=== PATIENT | female | born 1955 | race Caucasian/White ===

== ENCOUNTER → 2017-03-03 | Outpatient (CLI) | payer MEDICAID | END | disposition home or self-care (01) | LOC: CFH 12:46 | PROVIDERS: ATTEND Internal Medicine Cardiovascular Disease | DX: I08.1 Rheumatic disorders of both mitral and tricuspid valves (principal); I48.2 Chronic atrial fibrillation; E11.9 Type 2 diabetes mellitus without complications; Z85.3 Personal history of malignant neoplasm of breast; Z86.73 Personal history of transient ischemic attack (TIA), and cerebral infarction without residual deficits; Z87.891 Personal history of nicotine dependence; Z79.82 Long term (current) use of aspirin | CPT/HCPCS: 93306 ==

== ENCOUNTER 2018-03-04 13:07 | Inpatient (IN) | payer MEDICAID ==
[~2018-03-04] VITALS: Ht 172.7 cm; Wt 96.3 kg
[2018-03-04] MEDS ORDERED: NITROGLYCERIN SINGLE TAB 0.4 MG SL PRN (13:30)
[2018-03-04] MEDS ORDERED: NITROGLYCERIN SINGLE TAB 0.4 MG SL ONE (13:42)
[2018-03-04 13:56] LABS: BASOPHILS # (AUTO) 0.16 x10^3/uL (0-0.1); BASOPHILS % (AUTO) 2 % (0-1); EOSINOPHILS # (AUTO) 0.24 x10^3/uL (0-0.4); EOSINOPHILS % (AUTO) 2 % (1-7); LYMPHOCYTES # (AUTO) 2.54 x10^3/uL (1-3.4); LYMPHOCYTES % (AUTO) 26 % (22-44); MD NO; MEAN CORPUSCULAR HEMOGLOBIN 27.3 pg (27.0-34.8); MEAN CORPUSCULAR HGB CONC 32.7 g/dL (32.4-35.8); MEAN CORPUSCULAR VOLUME 83.4 fL (80-100); MONOCYTES # (AUTO) 0.57 x10^3/uL (0.2-0.8); MONOCYTES % (AUTO) 6 % (2-9); NEUTROPHILS # (AUTO) 6.43 x10^3/uL (1.8-6.8); NEUTROPHILS % (AUTO) 65 % (42-75); PLATELET COUNT 272 x10^3/uL (130-400); RED BLOOD COUNT 5.37 x10^6/uL (3.82-5.3); RED CELL DISTRIBUTION WIDTH 15.5 % (9.6-15.2)
[2018-03-04] MEDS ORDERED: PLEASE ENTER HEIGHT AND WEIGHT MC SCH (14:00)
[2018-03-04 14:02] LABS: ALANINE AMINOTRANSFERASE 15 U/L (12-78); ALBUMIN 3.3 g/dL (3.4-5.0); ANION GAP 7 mmol/L (5-15); CALCIUM 9.4 mg/dL (8.5-10.1); CHLORIDE 105 mmol/L (98-107); INTERNATIONAL NORMALIZED RATIO 1.02 (0.93-1.1); PROTHROMBIN TIME 10.5 Seconds (9.6-11.5)
[2018-03-04] MEDS ORDERED: OLOD4MIS2 PO (14:05)
[2018-03-04] MEDS ORDERED: SUMA25TA4 PO (14:05)
[2018-03-04 14:06] LABS: ALKALINE PHOSPHATASE 95 U/L (45-117); BILIRUBIN,TOTAL 0.3 mg/dL (0.2-1.0); TOTAL PROTEIN 7.2 g/dL (6.4-8.2); TROPONIN I 0.016 ng/mL (0.000-0.045)
[2018-03-04 15:24] LABS: CULTURE INDICATED? YES; MICROSCOPIC INDICATED
[2018-03-04] MEDS ORDERED: ALPR0.5T5 PO (16:01)
[2018-03-04] MEDS ORDERED: SUMA50TA4 PO (16:01)
[2018-03-04] MEDS ORDERED: TIOT4MIS3 INH (16:02)
[2018-03-04] MEDS ORDERED: ESOM40CA PO (16:03)
[2018-03-04] MEDS ORDERED: CANA300T PO (16:03)
[2018-03-04] MEDS ORDERED: GLIP10TA13 PO (16:04)
[2018-03-04] MEDS ORDERED: LORA10TA62 PO (16:05)
[2018-03-04] MEDS ORDERED: SITA1TBM7 PO (16:06)
[2018-03-04] MEDS ORDERED: LEVO25TA2 PO (16:06)
[2018-03-04] MEDS ORDERED: SIMV40TA3 PO (16:08)
[2018-03-04] MEDS ORDERED: ARIP20TA5 PO (16:08)
[2018-03-04] MEDS ORDERED: TRAZ150T62 PO (16:09)
[2018-03-04] MEDS ORDERED: ASPI-496 PO (16:10)
[2018-03-04] MEDS ORDERED: ALBU1.25 NEB (16:10)
[2018-03-04] MEDS ORDERED: CITA20TA6 PO (16:11)
[2018-03-04] MEDS ORDERED: CEFTRIAXONE PMX 1GM/50ML 50 ML ONE (16:26)
[2018-03-04] MEDS ORDERED: DIGO250T12 PO (16:29)
[2018-03-04] MEDS ORDERED: DEXTROSE 4 GM TAB.CHEW PO PRN (16:30)
[2018-03-04] MEDS ORDERED: POLYETHYLENE GLYCOL 17 GM PACKET PO PRN (16:30)
[2018-03-04] MEDS ORDERED: GLUCAGON 1 MG IM PRN (16:30)
[2018-03-04] MEDS ORDERED: ENALAPRILAT 1.25 MG/ML, 2ML IVPush PRN (16:30)
[2018-03-04] MEDS ORDERED: DEXTROSE 50%, 50ML SYRINGE IVPush PRN (16:30)
[2018-03-04] MEDS ORDERED: LABETALOL 5MG/ML, 20ML IVPush PRN (16:30)
[2018-03-04] MEDS ORDERED: BISACODYL 10 MG SUPP PR PRN (16:30)
[2018-03-04] MEDS ORDERED: DOCUSATE 100 MG CAPSULE PO PRN (16:30)
[2018-03-04] MEDS ORDERED: CEFTRIAXONE 1,000 MG in SODIUM CHLORIDE 0.9% 50 ML IV SCH (16:30)
[2018-03-04] MEDS ORDERED: MORPHINE SULFATE 4 MG/ML, 1ML IVPush PRN (16:30)
[2018-03-04] MEDS ORDERED: hydrALAzine 20 MG/ML, 1ML IVPush PRN (16:30)
[2018-03-04] MEDS: CEFTRIAXONE PMX 1GM/50ML 50 ML IV SCH (16:40)
[2018-03-04 16:46] VITALS: BP 128/78
[2018-03-04 16:54] LABS: TROPONIN I 0.022 ng/mL (0.000-0.045)
[2018-03-04] MEDS ORDERED: FUROSEMIDE 20 MG/2 ML IV ONE (17:00)
[2018-03-04 17:18] LABS: HEMOGLOBIN A1C 6.4 % (4.2-6.3)
[2018-03-04 17:50] LABS: AMPHETAMINE SCREEN, URINE Negative (Negative); BARBITURATE SCREEN, URINE Negative (Negative); BENZODIAZEPINE SCREEN, URINE Negative (Negative); CANNABINOID SCREEN, URINE Negative (Negative); COCAINE SCREEN, URINE Negative (Negative); METHADONE SCREEN, URINE Negative (Negative); OPIATE SCREEN, URINE Negative (Negative)
[2018-03-04 20:07] VITALS: BP 111/69
[2018-03-04] MEDS ORDERED: ALBUTEROL SULFATE 2.5 MG/3 ML NPPB PRN (20:30)
[2018-03-04] MEDS ORDERED: ALPRAZOLAM 0.5 MG PO SCH (21:00)
[2018-03-04] MEDS: INSULIN LISPRO 100 UNITS/ML, PEN SQ-INSULIN SCH (21:00)
[2018-03-04] MEDS ORDERED: OLODATEROL HCL PO SCH (21:00)
[2018-03-04] MEDS: SIMVASTATIN 40 MG TABLET PO SCH (21:51)
[2018-03-04] MEDS: HEPARIN 5,000 UNITS/ML, 1ML SQ SCH (21:51)
[2018-03-04] MEDS: SODIUM CHLORIDE FLUSH 10ML SYR IVF SCH (21:55)
[2018-03-04 22:49] LABS: TROPONIN I 0.024 ng/mL (0.000-0.045)
[2018-03-05 00:23] VITALS: BP 118/63
[2018-03-05 05:06] LABS: BASOPHILS # (AUTO) 0.04 x10^3/uL (0-0.1); BASOPHILS % (AUTO) 0 % (0-1); EOSINOPHILS # (AUTO) 0.25 x10^3/uL (0-0.4); EOSINOPHILS % (AUTO) 2 % (1-7); LYMPHOCYTES # (AUTO) 1.97 x10^3/uL (1-3.4); LYMPHOCYTES % (AUTO) 17 % (22-44); MD NO; MEAN CORPUSCULAR HEMOGLOBIN 26.5 pg (27.0-34.8); MEAN CORPUSCULAR HGB CONC 32.3 g/dL (32.4-35.8); MEAN CORPUSCULAR VOLUME 82.3 fL (80-100); MEAN PLATELET VOLUME 7.8 fL (7.4-10.4); MONOCYTES # (AUTO) 0.71 x10^3/uL (0.2-0.8); MONOCYTES % (AUTO) 6 % (2-9); NEUTROPHILS % (AUTO) 75 % (42-75); PLATELET COUNT 268 x10^3/uL (130-400); RED BLOOD COUNT 5.44 x10^6/uL (3.82-5.3); RED CELL DISTRIBUTION WIDTH 15.8 % (9.6-15.2)
[2018-03-05 05:18] LABS: ALBUMIN 3.3 g/dL (3.4-5.0); ANION GAP 7 mmol/L (5-15); CALCIUM 9.7 mg/dL (8.5-10.1); CHLORIDE 104 mmol/L (98-107)
[2018-03-05] MEDS: HEPARIN 5,000 UNITS/ML, 1ML SQ SCH (05:20)
[2018-03-05 05:24] LABS: ALANINE AMINOTRANSFERASE 16 U/L (12-78); ALKALINE PHOSPHATASE 89 U/L (45-117); BILIRUBIN,TOTAL 0.3 mg/dL (0.2-1.0); CHOL/HDL RATIO 6.8; CHOLESTEROL, TOTAL 258 mg/dL (140-239); CREATININE 0.87 mg/dL (0.55-1.02); HDL CHOL % 15 % (28-40); HDL CHOLESTEROL (DIRECT) 38 mg/dL (40-60); LDL CHOLESTEROL,CALCULATED 148 mg/dL (54-169); LDL/HDL RATIO 3.9 (0.5-3.0); TOTAL PROTEIN 6.9 g/dL (6.4-8.2); TRIGLYCERIDES 362 mg/dL (50-200); VLDL CHOLESTEROL 72 mg/dL (0-25)
[2018-03-05] MEDS ORDERED: LEVOTHYROXINE 150 MCG TABLET PO SCH (06:00)
[2018-03-05 07:10] LABS: TROPONIN I < 0.015 ng/mL (0.000-0.045)
[2018-03-05 07:28] VITALS: BP 117/71
[2018-03-05] MEDS: INSULIN LISPRO 100 UNITS/ML, PEN SQ-INSULIN SCH ×4 (07:52→21:00)
[2018-03-05] MEDS ORDERED: ESOMEPRAZOLE MAGNESIUM 40 MG PO SCH (09:00)
[2018-03-05] MEDS ORDERED: FUROSEMIDE 20 MG/2 ML IV SCH ×2 (09:00→17:30)
[2018-03-05] MEDS: ARIPIPRAZOLE 10 MG TABLET PO SCH (09:30)
[2018-03-05] MEDS: OMEPRAZOLE 20 MG CAPSULE.DR PO SCH (09:30)
[2018-03-05] MEDS: LORATADINE 10 MG TABLET PO SCH (09:30)
[2018-03-05] MEDS: ASPIRIN 81 MG TABLET EC PO SCH (09:30)
[2018-03-05] MEDS: TRAZODONE 150MG TABLET PO SCH (09:32)
[2018-03-05] MEDS: CITALOPRAM 20 MG TABLET PO SCH (09:32)
[2018-03-05] MEDS: SODIUM CHLORIDE FLUSH 10ML SYR IVF SCH ×2 (09:34→20:32)
[2018-03-05 12:36] VITALS: BP 111/76
[2018-03-05] MEDS: ENOXAPARIN 100 MG/ML SQ SCH (14:22)
[2018-03-05] MEDS: CEFTRIAXONE PMX 1GM/50ML 50 ML IV SCH (16:48)
[2018-03-05 18:10] VITALS: BP 127/67
[2018-03-05] MEDS: DIGOXIN 0.125 MG TABLET PO SCH (18:39)
[2018-03-05 19:32] VITALS: BP 116/75
[2018-03-05] MEDS: ACETAMINOPHEN 325 MG TABLET PO PRN (20:31)
[2018-03-05] MEDS: SIMVASTATIN 40 MG TABLET PO SCH (20:31)
[2018-03-06 00:58] VITALS: BP 126/76
[2018-03-06] MEDS: ENOXAPARIN 100 MG/ML SQ SCH ×2 (02:15→14:45)
[2018-03-06 05:16] LABS: BASOPHILS # (AUTO) 0.05 x10^3/uL (0-0.1); BASOPHILS % (AUTO) 1 % (0-1); EOSINOPHILS # (AUTO) 0.27 x10^3/uL (0-0.4); EOSINOPHILS % (AUTO) 3 % (1-7); LYMPHOCYTES # (AUTO) 2.45 x10^3/uL (1-3.4); LYMPHOCYTES % (AUTO) 24 % (22-44); MD NO; MEAN CORPUSCULAR HEMOGLOBIN 27.3 pg (27.0-34.8); MEAN CORPUSCULAR HGB CONC 32.6 g/dL (32.4-35.8); MEAN CORPUSCULAR VOLUME 83.6 fL (80-100); MEAN PLATELET VOLUME 8.1 fL (7.4-10.4); MONOCYTES # (AUTO) 0.75 x10^3/uL (0.2-0.8); MONOCYTES % (AUTO) 7 % (2-9); NEUTROPHILS # (AUTO) 6.54 x10^3/uL (1.8-6.8); NEUTROPHILS % (AUTO) 65 % (42-75); PLATELET COUNT 248 x10^3/uL (130-400); RED BLOOD COUNT 5.38 x10^6/uL (3.82-5.3); RED CELL DISTRIBUTION WIDTH 15.4 % (9.6-15.2)
[2018-03-06 05:28] LABS: ALBUMIN 3.2 g/dL (3.4-5.0); ANION GAP 9 mmol/L (5-15); CALCIUM 9.6 mg/dL (8.5-10.1); CHLORIDE 102 mmol/L (98-107)
[2018-03-06 05:29] LABS: CREATININE 0.68 mg/dL (0.55-1.02)
[2018-03-06] MEDS: LEVOTHYROXINE 100 MCG TABLET PO SCH (05:32)
[2018-03-06] MEDS: INSULIN LISPRO 100 UNITS/ML, PEN SQ-INSULIN SCH ×4 (07:00→20:32)
[2018-03-06 07:18] VITALS: BP 114/71
[2018-03-06] MEDS: OMEPRAZOLE 20 MG CAPSULE.DR PO SCH (07:30)
[2018-03-06] MEDS: LORATADINE 10 MG TABLET PO SCH (08:33)
[2018-03-06] MEDS: DIGOXIN 0.125 MG TABLET PO SCH (08:33)
[2018-03-06] MEDS: ASPIRIN 81 MG TABLET EC PO SCH (08:33)
[2018-03-06] MEDS: ARIPIPRAZOLE 10 MG TABLET PO SCH (08:33)
[2018-03-06] MEDS: SODIUM CHLORIDE FLUSH 10ML SYR IVF SCH ×2 (08:34→20:37)
[2018-03-06] MEDS: CITALOPRAM 20 MG TABLET PO SCH (08:34)
[2018-03-06] MEDS ORDERED: REGADENOSON 0.4 MG/5 ML SYRINGE ONE (08:45)
[2018-03-06] MEDS ORDERED: DIGOXIN 0.125 MG TABLET PO SCH (09:00)
[2018-03-06 13:02] VITALS: BP 117/71
[2018-03-06 16:05] LABS: OCCULT BLOOD NEGATIVE (NEGATIVE)
[2018-03-06] MEDS: CEFTRIAXONE PMX 1GM/50ML 50 ML IV SCH (16:20)
[2018-03-06] MEDS: ACETAMINOPHEN 325 MG TABLET PO PRN ×2 (16:24→20:40)
[2018-03-06] MEDS ORDERED: METOPROLOL 1 MG/ML, 5ML IVPush PRN (18:00)
[2018-03-06] MEDS ORDERED: DIGOXIN 0.125 MG TABLET PO ONE (18:30)
[2018-03-06 19:30] VITALS: BP 127/75
[2018-03-06] MEDS ORDERED: TRAZODONE 100MG TABLET ONE (20:19)
[2018-03-06] MEDS ORDERED: TRAZODONE 50MG TABLET ONE (20:19)
[2018-03-06] MEDS: TRAZODONE 150MG TABLET PO SCH (20:37)
[2018-03-06] MEDS: SIMVASTATIN 40 MG TABLET PO SCH (20:37)
[2018-03-06] MEDS ORDERED: APIXABAN 5 MG TABLET PO SCH (21:00)
[2018-03-07 03:00] VITALS: BP 129/77
[2018-03-07] MEDS: LEVOTHYROXINE 100 MCG TABLET PO SCH (05:15)
[2018-03-07 05:56] LABS: CHLORIDE 103 mmol/L (98-107)
[2018-03-07 06:20] LABS: ANION GAP 8 mmol/L (5-15); CALCIUM 9.6 mg/dL (8.5-10.1)
[2018-03-07] MEDS: INSULIN LISPRO 100 UNITS/ML, PEN SQ-INSULIN SCH ×4 (07:00→20:49)
[2018-03-07] MEDS: ARIPIPRAZOLE 10 MG TABLET PO SCH (07:38)
[2018-03-07] MEDS: SODIUM CHLORIDE FLUSH 10ML SYR IVF SCH ×2 (07:38→20:47)
[2018-03-07] MEDS: DIGOXIN 0.25 MG TABLET PO SCH (07:38)
[2018-03-07] MEDS: LORATADINE 10 MG TABLET PO SCH (07:38)
[2018-03-07] MEDS: OMEPRAZOLE 20 MG CAPSULE.DR PO SCH (07:38)
[2018-03-07] MEDS: ASPIRIN 81 MG TABLET EC PO SCH (07:38)
[2018-03-07] MEDS: CITALOPRAM 20 MG TABLET PO SCH (07:38)
[2018-03-07 07:49] VITALS: BP 124/77
[2018-03-07] MEDS ORDERED: DIGOXIN 0.125 MG TABLET PO SCH (09:00)
[2018-03-07] MEDS: MEROPENEM 1 GM in SODIUM CHLORIDE 0.9% 100 ML IV SCH ×2 (11:40→20:47)
[2018-03-07 13:19] VITALS: BP 127/79
[2018-03-07 20:31] VITALS: BP 122/76
[2018-03-07] MEDS ORDERED: TRAZODONE 100MG TABLET ONE (20:36)
[2018-03-07] MEDS ORDERED: TRAZODONE 50MG TABLET ONE (20:36)
[2018-03-07] MEDS: TRAZODONE 150MG TABLET PO SCH (20:48)
[2018-03-07] MEDS: SIMVASTATIN 40 MG TABLET PO SCH (20:49)
[2018-03-08 02:13] VITALS: BP 129/75
[2018-03-08] MEDS: MEROPENEM 1 GM in SODIUM CHLORIDE 0.9% 100 ML IV SCH ×3 (04:29→20:46)
[2018-03-08 05:20] LABS: ALBUMIN 3.1 g/dL (3.4-5.0); ANION GAP 4 mmol/L (5-15); CALCIUM 9.6 mg/dL (8.5-10.1); CHLORIDE 104 mmol/L (98-107); CREATININE 0.62 mg/dL (0.55-1.02)
[2018-03-08] MEDS: LEVOTHYROXINE 100 MCG TABLET PO SCH (06:01)
[2018-03-08] MEDS: INSULIN LISPRO 100 UNITS/ML, PEN SQ-INSULIN SCH ×4 (07:00→20:58)
[2018-03-08 07:57] VITALS: BP 129/63
[2018-03-08] MEDS: ASPIRIN 81 MG TABLET EC PO SCH (08:00)
[2018-03-08] MEDS: ARIPIPRAZOLE 10 MG TABLET PO SCH (08:00)
[2018-03-08] MEDS: OMEPRAZOLE 20 MG CAPSULE.DR PO SCH (08:01)
[2018-03-08] MEDS: DIGOXIN 0.25 MG TABLET PO SCH (08:01)
[2018-03-08] MEDS: CITALOPRAM 20 MG TABLET PO SCH (08:01)
[2018-03-08] MEDS: LORATADINE 10 MG TABLET PO SCH (08:01)
[2018-03-08] MEDS: SODIUM CHLORIDE FLUSH 10ML SYR IVF SCH ×2 (08:02→20:52)
[2018-03-08 08:32] VITALS: BP 128/72
[2018-03-08 13:08] VITALS: BP 145/71
[2018-03-08] MEDS: HEPARIN 5,000 UNITS/ML, 1ML SQ SCH ×2 (15:03→22:31)
[2018-03-08 20:19] VITALS: BP 138/84
[2018-03-08] MEDS: SIMVASTATIN 40 MG TABLET PO SCH (20:52)
[2018-03-08] MEDS: TRAZODONE 150MG TABLET PO SCH (20:52)
[2018-03-09 02:28] VITALS: BP 145/90
[2018-03-09] MEDS: MEROPENEM 1 GM in SODIUM CHLORIDE 0.9% 100 ML IV SCH ×3 (04:06→20:51)
[2018-03-09] MEDS: HEPARIN 5,000 UNITS/ML, 1ML SQ SCH ×3 (05:25→22:37)
[2018-03-09] MEDS: LEVOTHYROXINE 100 MCG TABLET PO SCH (05:25)
[2018-03-09 05:56] LABS: BASOPHILS # (AUTO) 0.05 x10^3/uL (0-0.1); BASOPHILS % (AUTO) 1 % (0-1); EOSINOPHILS # (AUTO) 0.24 x10^3/uL (0-0.4); EOSINOPHILS % (AUTO) 3 % (1-7); LYMPHOCYTES % (AUTO) 22 % (22-44); MD NO; MEAN CORPUSCULAR HEMOGLOBIN 27.1 pg (27.0-34.8); MEAN CORPUSCULAR HGB CONC 32.2 g/dL (32.4-35.8); MEAN CORPUSCULAR VOLUME 84.2 fL (80-100); MEAN PLATELET VOLUME 8.5 fL (7.4-10.4); MONOCYTES # (AUTO) 0.57 x10^3/uL (0.2-0.8); MONOCYTES % (AUTO) 7 % (2-9); NEUTROPHILS # (AUTO) 5.43 x10^3/uL (1.8-6.8); NEUTROPHILS % (AUTO) 67 % (42-75); PLATELET COUNT 259 x10^3/uL (130-400); RED BLOOD COUNT 5.22 x10^6/uL (3.82-5.3); RED CELL DISTRIBUTION WIDTH 15.4 % (9.6-15.2)
[2018-03-09 06:09] LABS: CALCIUM 9.4 mg/dL (8.5-10.1); CHLORIDE 104 mmol/L (98-107)
[2018-03-09 06:12] LABS: ANION GAP 7 mmol/L (5-15); CREATININE 0.51 mg/dL (0.55-1.02)
[2018-03-09 06:48] VITALS: BP 130/85
[2018-03-09] MEDS: INSULIN LISPRO 100 UNITS/ML, PEN SQ-INSULIN SCH ×4 (07:00→20:51)
[2018-03-09] MEDS: ARIPIPRAZOLE 10 MG TABLET PO SCH (07:55)
[2018-03-09] MEDS: ASPIRIN 81 MG TABLET EC PO SCH (07:55)
[2018-03-09] MEDS: LORATADINE 10 MG TABLET PO SCH (07:55)
[2018-03-09] MEDS: OMEPRAZOLE 20 MG CAPSULE.DR PO SCH (07:55)
[2018-03-09] MEDS: CITALOPRAM 20 MG TABLET PO SCH (07:55)
[2018-03-09] MEDS: DIGOXIN 0.25 MG TABLET PO SCH (07:55)
[2018-03-09] MEDS: FUROSEMIDE 20 MG TABLET PO SCH (07:55)
[2018-03-09] MEDS: SODIUM CHLORIDE FLUSH 10ML SYR IVF SCH ×2 (07:56→20:50)
[2018-03-09 12:12] VITALS: BP 117/72
[2018-03-09 19:04] VITALS: BP 131/78
[2018-03-09] MEDS: SIMVASTATIN 40 MG TABLET PO SCH (20:50)
[2018-03-09] MEDS: TRAZODONE 150MG TABLET PO SCH (20:50)
[2018-03-10 02:55] VITALS: BP 117/77
[2018-03-10] MEDS: MEROPENEM 1 GM in SODIUM CHLORIDE 0.9% 100 ML IV SCH ×3 (04:14→20:22)
[2018-03-10] MEDS: HEPARIN 5,000 UNITS/ML, 1ML SQ SCH ×2 (06:07→16:17)
[2018-03-10] MEDS: LEVOTHYROXINE 100 MCG TABLET PO SCH (06:07)
[2018-03-10] MEDS: INSULIN LISPRO 100 UNITS/ML, PEN SQ-INSULIN SCH ×4 (07:00→20:29)
[2018-03-10 07:53] VITALS: BP 144/85
[2018-03-10] MEDS: FUROSEMIDE 20 MG TABLET PO SCH (09:25)
[2018-03-10] MEDS: SODIUM CHLORIDE FLUSH 10ML SYR IVF SCH ×2 (09:25→20:23)
[2018-03-10] MEDS: ASPIRIN 81 MG TABLET EC PO SCH (09:25)
[2018-03-10] MEDS: OMEPRAZOLE 20 MG CAPSULE.DR PO SCH (09:25)
[2018-03-10] MEDS: CITALOPRAM 20 MG TABLET PO SCH (09:26)
[2018-03-10] MEDS: LORATADINE 10 MG TABLET PO SCH (09:26)
[2018-03-10] MEDS: DIGOXIN 0.25 MG TABLET PO SCH (09:26)
[2018-03-10] MEDS: ARIPIPRAZOLE 10 MG TABLET PO SCH (09:26)
[2018-03-10] MEDS ORDERED: MERO1VIA15 IV (13:18)
[2018-03-10] MEDS ORDERED: LEVO100T PO (13:18)
[2018-03-10] MEDS ORDERED: FURO20TA3 PO (13:18)
[2018-03-10 13:21] VITALS: BP 116/75
[2018-03-10 19:05] VITALS: BP 120/77
[2018-03-10] MEDS: SIMVASTATIN 40 MG TABLET PO SCH (20:21)
[2018-03-10] MEDS: TRAZODONE 150MG TABLET PO SCH (20:21)
[2018-03-11] MEDS: HEPARIN 5,000 UNITS/ML, 1ML SQ SCH ×3 (01:22→17:04)
[2018-03-11 03:53] VITALS: BP 118/73
[2018-03-11] MEDS: MEROPENEM 1 GM in SODIUM CHLORIDE 0.9% 100 ML IV SCH ×3 (05:00→20:58)
[2018-03-11] MEDS: LEVOTHYROXINE 100 MCG TABLET PO SCH (05:00)
[2018-03-11 06:49] VITALS: BP 120/76
[2018-03-11] MEDS: INSULIN LISPRO 100 UNITS/ML, PEN SQ-INSULIN SCH ×4 (08:14→21:00)
[2018-03-11] MEDS: CITALOPRAM 20 MG TABLET PO SCH (09:00)
[2018-03-11] MEDS: LORATADINE 10 MG TABLET PO SCH (09:00)
[2018-03-11] MEDS: ASPIRIN 81 MG TABLET EC PO SCH (09:01)
[2018-03-11] MEDS: OMEPRAZOLE 20 MG CAPSULE.DR PO SCH (09:01)
[2018-03-11] MEDS: FUROSEMIDE 20 MG TABLET PO SCH (09:01)
[2018-03-11] MEDS: DIGOXIN 0.25 MG TABLET PO SCH (09:01)
[2018-03-11] MEDS: ARIPIPRAZOLE 10 MG TABLET PO SCH (09:01)
[2018-03-11] MEDS: SODIUM CHLORIDE FLUSH 10ML SYR IVF SCH ×2 (09:09→20:59)
[2018-03-11 12:13] VITALS: BP 117/77
[2018-03-11 18:25] VITALS: BP 124/78
[2018-03-11] MEDS: SIMVASTATIN 40 MG TABLET PO SCH (20:59)
[2018-03-11] MEDS: TRAZODONE 150MG TABLET PO SCH (20:59)
[2018-03-12 00:58] VITALS: BP 109/74
[2018-03-12] MEDS: HEPARIN 5,000 UNITS/ML, 1ML SQ SCH ×3 (01:04→16:38)
[2018-03-12] MEDS: MEROPENEM 1 GM in SODIUM CHLORIDE 0.9% 100 ML IV SCH ×3 (04:40→21:24)
[2018-03-12] MEDS: LEVOTHYROXINE 100 MCG TABLET PO SCH (05:01)
[2018-03-12 06:53] VITALS: BP 111/74
[2018-03-12] MEDS: INSULIN LISPRO 100 UNITS/ML, PEN SQ-INSULIN SCH ×4 (07:00→21:25)
[2018-03-12] MEDS: OMEPRAZOLE 20 MG CAPSULE.DR PO SCH (09:18)
[2018-03-12] MEDS: ARIPIPRAZOLE 10 MG TABLET PO SCH (09:19)
[2018-03-12] MEDS: CITALOPRAM 20 MG TABLET PO SCH (09:19)
[2018-03-12] MEDS: ASPIRIN 81 MG TABLET EC PO SCH (09:19)
[2018-03-12] MEDS: LORATADINE 10 MG TABLET PO SCH (09:19)
[2018-03-12] MEDS: DIGOXIN 0.25 MG TABLET PO SCH (09:19)
[2018-03-12] MEDS: FUROSEMIDE 20 MG TABLET PO SCH (09:20)
[2018-03-12] MEDS: SODIUM CHLORIDE FLUSH 10ML SYR IVF SCH ×2 (12:24→21:25)
[2018-03-12 12:32] VITALS: BP 135/82
[2018-03-12 20:16] VITALS: BP 129/76
[2018-03-12] MEDS: TRAZODONE 150MG TABLET PO SCH (21:24)
[2018-03-12] MEDS: SIMVASTATIN 40 MG TABLET PO SCH (21:24)
[2018-03-13] MEDS: HEPARIN 5,000 UNITS/ML, 1ML SQ SCH ×3 (01:07→17:09)
[2018-03-13 02:32] VITALS: BP 116/77
[2018-03-13] MEDS: MEROPENEM 1 GM in SODIUM CHLORIDE 0.9% 100 ML IV SCH ×3 (05:16→21:00)
[2018-03-13] MEDS: LEVOTHYROXINE 100 MCG TABLET PO SCH (05:19)
[2018-03-13] MEDS: INSULIN LISPRO 100 UNITS/ML, PEN SQ-INSULIN SCH ×4 (07:00→21:00)
[2018-03-13 08:50] VITALS: BP 112/66
[2018-03-13] MEDS: CITALOPRAM 20 MG TABLET PO SCH (08:54)
[2018-03-13] MEDS: ASPIRIN 81 MG TABLET EC PO SCH (08:54)
[2018-03-13] MEDS: ARIPIPRAZOLE 10 MG TABLET PO SCH (08:54)
[2018-03-13] MEDS: OMEPRAZOLE 20 MG CAPSULE.DR PO SCH (08:54)
[2018-03-13] MEDS: FUROSEMIDE 20 MG TABLET PO SCH (08:54)
[2018-03-13] MEDS: DIGOXIN 0.25 MG TABLET PO SCH (08:55)
[2018-03-13] MEDS: LORATADINE 10 MG TABLET PO SCH (08:55)
[2018-03-13] MEDS: SODIUM CHLORIDE FLUSH 10ML SYR IVF SCH ×2 (08:56→21:00)
[2018-03-13 12:35] VITALS: BP 130/79
[2018-03-13] MEDS: METOPROLOL TARTRATE 25 MG TABLET PO SCH (17:09)
[2018-03-13 20:17] VITALS: BP 116/72
[2018-03-13] MEDS: TRAZODONE 150MG TABLET PO SCH (20:59)
[2018-03-13] MEDS: SIMVASTATIN 40 MG TABLET PO SCH (20:59)
[2018-03-14] MEDS: HEPARIN 5,000 UNITS/ML, 1ML SQ SCH ×3 (01:56→16:43)
[2018-03-14 03:15] VITALS: BP 113/82
[2018-03-14 05:50] LABS: BASOPHILS # (AUTO) 0.09 x10^3/uL (0-0.1); BASOPHILS % (AUTO) 1 % (0-1); EOSINOPHILS # (AUTO) 0.25 x10^3/uL (0-0.4); EOSINOPHILS % (AUTO) 3 % (1-7); LYMPHOCYTES # (AUTO) 2.25 x10^3/uL (1-3.4); LYMPHOCYTES % (AUTO) 26 % (22-44); MD NO; MEAN CORPUSCULAR HEMOGLOBIN 27.5 pg (27.0-34.8); MEAN CORPUSCULAR HGB CONC 33.1 g/dL (32.4-35.8); MEAN CORPUSCULAR VOLUME 83.3 fL (80-100); MEAN PLATELET VOLUME 7.7 fL (7.4-10.4); MONOCYTES # (AUTO) 0.54 x10^3/uL (0.2-0.8); MONOCYTES % (AUTO) 6 % (2-9); NEUTROPHILS # (AUTO) 5.51 x10^3/uL (1.8-6.8); NEUTROPHILS % (AUTO) 64 % (42-75); PLATELET COUNT 283 x10^3/uL (130-400); RED BLOOD COUNT 5.02 x10^6/uL (3.82-5.3); RED CELL DISTRIBUTION WIDTH 15.1 % (9.6-15.2)
[2018-03-14] MEDS ORDERED: LEVOTHYROXINE 200 MCG TABLET ONE (05:54)
[2018-03-14 06:00] LABS: ALANINE AMINOTRANSFERASE 41 U/L (12-78); ANION GAP 4 mmol/L (5-15); CALCIUM 9.5 mg/dL (8.5-10.1); CHLORIDE 102 mmol/L (98-107); CREATININE 0.56 mg/dL (0.55-1.02)
[2018-03-14] MEDS: LEVOTHYROXINE 100 MCG TABLET PO SCH (06:00)
[2018-03-14 06:02] LABS: ALKALINE PHOSPHATASE 121 U/L (45-117); BILIRUBIN,TOTAL 0.3 mg/dL (0.2-1.0); TOTAL PROTEIN 6.5 g/dL (6.4-8.2)
[2018-03-14] MEDS: METOPROLOL TARTRATE 25 MG TABLET PO SCH ×2 (06:08→17:00)
[2018-03-14] MEDS: MEROPENEM 1 GM in SODIUM CHLORIDE 0.9% 100 ML IV SCH ×3 (06:08→21:19)
[2018-03-14] MEDS: INSULIN LISPRO 100 UNITS/ML, PEN SQ-INSULIN SCH ×4 (07:00→21:20)
[2018-03-14] MEDS: OMEPRAZOLE 20 MG CAPSULE.DR PO SCH (08:08)
[2018-03-14 08:16] VITALS: BP 116/71
[2018-03-14] MEDS: SODIUM CHLORIDE FLUSH 10ML SYR IVF SCH ×2 (09:00→21:19)
[2018-03-14] MEDS: ARIPIPRAZOLE 10 MG TABLET PO SCH (10:16)
[2018-03-14] MEDS: CITALOPRAM 20 MG TABLET PO SCH (10:16)
[2018-03-14] MEDS: FUROSEMIDE 20 MG TABLET PO SCH (10:16)
[2018-03-14] MEDS: DIGOXIN 0.25 MG TABLET PO SCH (10:17)
[2018-03-14] MEDS: LORATADINE 10 MG TABLET PO SCH (10:17)
[2018-03-14] MEDS: ASPIRIN 81 MG TABLET EC PO SCH (10:17)
[2018-03-14 13:14] VITALS: BP 107/71
[2018-03-14 19:08] VITALS: BP 111/72
[2018-03-14] MEDS: TRAZODONE 150MG TABLET PO SCH (21:24)
[2018-03-14] MEDS: SIMVASTATIN 40 MG TABLET PO SCH (21:24)
[2018-03-15 00:33] VITALS: BP 120/73
[2018-03-15] MEDS: HEPARIN 5,000 UNITS/ML, 1ML SQ SCH ×2 (01:11→08:17)
[2018-03-15] MEDS ORDERED: LEVOTHYROXINE 200 MCG TABLET ONE (05:03)
[2018-03-15] MEDS: LEVOTHYROXINE 100 MCG TABLET PO SCH (05:19)
[2018-03-15] MEDS: METOPROLOL TARTRATE 25 MG TABLET PO SCH ×2 (05:20→17:13)
[2018-03-15] MEDS: MEROPENEM 1 GM in SODIUM CHLORIDE 0.9% 100 ML IV SCH ×3 (05:23→21:31)
[2018-03-15] MEDS: INSULIN LISPRO 100 UNITS/ML, PEN SQ-INSULIN SCH ×4 (07:00→21:31)
[2018-03-15 07:10] VITALS: BP 114/73
[2018-03-15] MEDS: CITALOPRAM 20 MG TABLET PO SCH (08:16)
[2018-03-15] MEDS: ASPIRIN 81 MG TABLET EC PO SCH (08:16)
[2018-03-15] MEDS: DIGOXIN 0.25 MG TABLET PO SCH (08:16)
[2018-03-15] MEDS: FUROSEMIDE 20 MG TABLET PO SCH (08:16)
[2018-03-15] MEDS: ARIPIPRAZOLE 10 MG TABLET PO SCH (08:16)
[2018-03-15] MEDS: OMEPRAZOLE 20 MG CAPSULE.DR PO SCH (08:16)
[2018-03-15] MEDS: LORATADINE 10 MG TABLET PO SCH (08:16)
[2018-03-15] MEDS: SODIUM CHLORIDE FLUSH 10ML SYR IVF SCH ×2 (08:17→21:30)
[2018-03-15] MEDS: TEMPLATE NON-FORMULARY MED. (Sitagliptin Phos/Metformin Hcl (Janumet Xr 100-1,000 Mg Table HOMEMEDPO SCH (09:00)
[2018-03-15] MEDS: ENOXAPARIN 40 MG/0.4 ML SQ SCH (12:35)
[2018-03-15 13:20] VITALS: BP 123/72
[2018-03-15 18:28] VITALS: BP 111/72
[2018-03-15] MEDS: TRAZODONE 150MG TABLET PO SCH (21:29)
[2018-03-15] MEDS: SIMVASTATIN 40 MG TABLET PO SCH (21:30)
[2018-03-16 01:50] VITALS: BP 116/69
[2018-03-16] MEDS ORDERED: LEVOTHYROXINE 200 MCG TABLET ONE (05:11)
[2018-03-16] MEDS: MEROPENEM 1 GM in SODIUM CHLORIDE 0.9% 100 ML IV SCH ×3 (05:21→21:05)
[2018-03-16] MEDS: METOPROLOL TARTRATE 25 MG TABLET PO SCH ×2 (05:23→18:28)
[2018-03-16] MEDS: LEVOTHYROXINE 100 MCG TABLET PO SCH (05:23)
[2018-03-16 06:56] VITALS: BP 116/64
[2018-03-16] MEDS: INSULIN LISPRO 100 UNITS/ML, PEN SQ-INSULIN SCH ×4 (07:00→20:42)
[2018-03-16] MEDS: TEMPLATE NON-FORMULARY MED. (Sitagliptin Phos/Metformin Hcl (Janumet Xr 100-1,000 Mg Table HOMEMEDPO SCH (09:00)
[2018-03-16] MEDS: SODIUM CHLORIDE FLUSH 10ML SYR IVF SCH ×2 (09:00→20:41)
[2018-03-16] MEDS: ARIPIPRAZOLE 10 MG TABLET PO SCH (09:26)
[2018-03-16] MEDS: OMEPRAZOLE 20 MG CAPSULE.DR PO SCH (09:26)
[2018-03-16] MEDS: CITALOPRAM 20 MG TABLET PO SCH (09:26)
[2018-03-16] MEDS: ASPIRIN 81 MG TABLET EC PO SCH (09:26)
[2018-03-16] MEDS: LORATADINE 10 MG TABLET PO SCH (09:27)
[2018-03-16] MEDS: DIGOXIN 0.25 MG TABLET PO SCH (09:27)
[2018-03-16] MEDS: FUROSEMIDE 20 MG TABLET PO SCH (09:27)
[2018-03-16] MEDS: ENOXAPARIN 40 MG/0.4 ML SQ SCH (12:10)
[2018-03-16 12:15] VITALS: BP 112/75
[2018-03-16 18:27] VITALS: BP 132/66
[2018-03-16] MEDS: SIMVASTATIN 40 MG TABLET PO SCH (20:42)
[2018-03-16] MEDS: TRAZODONE 150MG TABLET PO SCH (20:42)
[2018-03-16 21:12] VITALS: BP 131/77
[2018-03-17 00:58] VITALS: BP 117/73
[2018-03-17] MEDS: METOPROLOL TARTRATE 25 MG TABLET PO SCH ×2 (05:30→16:53)
[2018-03-17] MEDS: LEVOTHYROXINE 100 MCG TABLET PO SCH (05:30)
[2018-03-17] MEDS: MEROPENEM 1 GM in SODIUM CHLORIDE 0.9% 100 ML IV SCH ×3 (05:30→21:17)
[2018-03-17 07:03] VITALS: BP 103/66
[2018-03-17] MEDS: ASPIRIN 81 MG TABLET EC PO SCH (08:43)
[2018-03-17] MEDS: LORATADINE 10 MG TABLET PO SCH (08:43)
[2018-03-17] MEDS: OMEPRAZOLE 20 MG CAPSULE.DR PO SCH (08:43)
[2018-03-17] MEDS: ARIPIPRAZOLE 10 MG TABLET PO SCH (08:43)
[2018-03-17] MEDS: DIGOXIN 0.25 MG TABLET PO SCH (08:43)
[2018-03-17] MEDS: CITALOPRAM 20 MG TABLET PO SCH (08:43)
[2018-03-17] MEDS: FUROSEMIDE 20 MG TABLET PO SCH (08:44)
[2018-03-17] MEDS: INSULIN LISPRO 100 UNITS/ML, PEN SQ-INSULIN SCH ×4 (08:44→21:19)
[2018-03-17] MEDS: TEMPLATE NON-FORMULARY MED. (Sitagliptin Phos/Metformin Hcl (Janumet Xr 100-1,000 Mg Table HOMEMEDPO SCH (08:45)
[2018-03-17] MEDS: SODIUM CHLORIDE FLUSH 10ML SYR IVF SCH ×2 (08:46→21:17)
[2018-03-17] MEDS: ENOXAPARIN 40 MG/0.4 ML SQ SCH (11:58)
[2018-03-17 13:48] VITALS: BP 120/70
[2018-03-17 18:40] VITALS: BP 119/80
[2018-03-17] MEDS: TRAZODONE 150MG TABLET PO SCH (21:17)
[2018-03-17] MEDS: SIMVASTATIN 40 MG TABLET PO SCH (21:18)
[2018-03-18 00:51] VITALS: BP 124/82
[2018-03-18] MEDS: MEROPENEM 1 GM in SODIUM CHLORIDE 0.9% 100 ML IV SCH ×3 (06:12→22:05)
[2018-03-18] MEDS: METOPROLOL TARTRATE 25 MG TABLET PO SCH ×2 (06:12→18:42)
[2018-03-18] MEDS: LEVOTHYROXINE 100 MCG TABLET PO SCH (06:12)
[2018-03-18 06:14] VITALS: BP 115/74
[2018-03-18] MEDS: INSULIN LISPRO 100 UNITS/ML, PEN SQ-INSULIN SCH ×4 (07:00→22:05)
[2018-03-18] MEDS: TEMPLATE NON-FORMULARY MED. (Sitagliptin Phos/Metformin Hcl (Janumet Xr 100-1,000 Mg Table HOMEMEDPO SCH (09:00)
[2018-03-18] MEDS: LORATADINE 10 MG TABLET PO SCH (09:09)
[2018-03-18] MEDS: ASPIRIN 81 MG TABLET EC PO SCH (09:09)
[2018-03-18] MEDS: ARIPIPRAZOLE 10 MG TABLET PO SCH (09:09)
[2018-03-18] MEDS: OMEPRAZOLE 20 MG CAPSULE.DR PO SCH (09:09)
[2018-03-18] MEDS: CITALOPRAM 20 MG TABLET PO SCH (09:10)
[2018-03-18] MEDS: SODIUM CHLORIDE FLUSH 10ML SYR IVF SCH ×2 (09:10→21:00)
[2018-03-18] MEDS: FUROSEMIDE 20 MG TABLET PO SCH (09:10)
[2018-03-18] MEDS: DIGOXIN 0.25 MG TABLET PO SCH (09:10)
[2018-03-18] MEDS: ENOXAPARIN 40 MG/0.4 ML SQ SCH (12:22)
[2018-03-18 12:54] VITALS: BP 121/77
[2018-03-18 19:19] VITALS: BP 125/76
[2018-03-18] MEDS: TRAZODONE 150MG TABLET PO SCH (22:04)
[2018-03-18] MEDS: SIMVASTATIN 40 MG TABLET PO SCH (22:04)
[2018-03-19 01:17] VITALS: BP 120/81
[2018-03-19] MEDS: METOPROLOL TARTRATE 25 MG TABLET PO SCH ×2 (05:12→18:03)
[2018-03-19] MEDS: MEROPENEM 1 GM in SODIUM CHLORIDE 0.9% 100 ML IV SCH ×3 (05:13→21:07)
[2018-03-19] MEDS: LEVOTHYROXINE 100 MCG TABLET PO SCH (05:13)
[2018-03-19] MEDS: INSULIN LISPRO 100 UNITS/ML, PEN SQ-INSULIN SCH ×4 (07:00→21:10)
[2018-03-19 07:54] VITALS: BP 129/80
[2018-03-19] MEDS: TEMPLATE NON-FORMULARY MED. (Sitagliptin Phos/Metformin Hcl (Janumet Xr 100-1,000 Mg Table HOMEMEDPO SCH (09:00)
[2018-03-19] MEDS: SODIUM CHLORIDE FLUSH 10ML SYR IVF SCH ×2 (09:00→21:23)
[2018-03-19] MEDS: OMEPRAZOLE 20 MG CAPSULE.DR PO SCH (10:04)
[2018-03-19] MEDS: ARIPIPRAZOLE 10 MG TABLET PO SCH (10:04)
[2018-03-19] MEDS: LORATADINE 10 MG TABLET PO SCH (10:04)
[2018-03-19] MEDS: DIGOXIN 0.25 MG TABLET PO SCH (10:05)
[2018-03-19] MEDS: CITALOPRAM 20 MG TABLET PO SCH (10:05)
[2018-03-19] MEDS: FUROSEMIDE 20 MG TABLET PO SCH (10:05)
[2018-03-19] MEDS: ASPIRIN 81 MG TABLET EC PO SCH (10:05)
[2018-03-19] MEDS: ENOXAPARIN 40 MG/0.4 ML SQ SCH (12:21)
[2018-03-19 14:30] VITALS: BP 127/74
[2018-03-19 20:33] VITALS: BP 129/83
[2018-03-19] MEDS: SIMVASTATIN 40 MG TABLET PO SCH (21:08)
[2018-03-19] MEDS: TRAZODONE 150MG TABLET PO SCH (21:08)
[2018-03-20 02:33] VITALS: BP 115/73
[2018-03-20] MEDS: MEROPENEM 1 GM in SODIUM CHLORIDE 0.9% 100 ML IV SCH ×2 (05:22→13:08)
[2018-03-20] MEDS: METOPROLOL TARTRATE 25 MG TABLET PO SCH (05:22)
[2018-03-20] MEDS: LEVOTHYROXINE 100 MCG TABLET PO SCH (05:22)
[2018-03-20] MEDS: INSULIN LISPRO 100 UNITS/ML, PEN SQ-INSULIN SCH ×3 (07:35→16:00)
[2018-03-20] MEDS: OMEPRAZOLE 20 MG CAPSULE.DR PO SCH (07:35)
[2018-03-20 07:47] VITALS: BP 117/9
[2018-03-20] MEDS: LORATADINE 10 MG TABLET PO SCH (09:36)
[2018-03-20] MEDS: CITALOPRAM 20 MG TABLET PO SCH (09:36)
[2018-03-20] MEDS: ARIPIPRAZOLE 10 MG TABLET PO SCH (09:36)
[2018-03-20] MEDS: SODIUM CHLORIDE FLUSH 10ML SYR IVF SCH (09:37)
[2018-03-20] MEDS: DIGOXIN 0.25 MG TABLET PO SCH (09:37)
[2018-03-20] MEDS: ASPIRIN 81 MG TABLET EC PO SCH (09:37)
[2018-03-20] MEDS: TEMPLATE NON-FORMULARY MED. (Sitagliptin Phos/Metformin Hcl (Janumet Xr 100-1,000 Mg Table HOMEMEDPO SCH (09:37)
[2018-03-20] MEDS: FUROSEMIDE 20 MG TABLET PO SCH (09:37)
[2018-03-20] MEDS: ENOXAPARIN 40 MG/0.4 ML SQ SCH (13:08)
[2018-03-20 14:30] VITALS: BP 114/71
== END 2018-03-20 18:18 | disposition home or self-care (01) | DRG 689 ==
LOC: ED 14:56 → EDIP 14:57 → ED 15:33 → 5SO 16:37 → 4WST 03-08 08:37
PROVIDERS: ADMIT Hospitalist; ATTEND Family Medicine
DX: N39.0 Urinary tract infection, site not specified (principal); I50.33 Acute on chronic diastolic (congestive) heart failure; J96.10 Chronic respiratory failure, unspecified whether with hypoxia or hypercapnia; D68.59 Other primary thrombophilia; Z16.12 Extended spectrum beta lactamase (ESBL) resistance; I48.91 Unspecified atrial fibrillation; E89.0 Postprocedural hypothyroidism; E11.9 Type 2 diabetes mellitus without complications; J44.9 Chronic obstructive pulmonary disease, unspecified; G43.909 Migraine, unspecified, not intractable, without status migrainosus; Z16.24 Resistance to multiple antibiotics; I25.10 Atherosclerotic heart disease of native coronary artery without angina pectoris; Z86.73 Personal history of transient ischemic attack (TIA), and cerebral infarction without residual deficits; Z98.51 Tubal ligation status; Z90.49 Acquired absence of other specified parts of digestive tract; I25.2 Old myocardial infarction; Z80.0 Family history of malignant neoplasm of digestive organs; Z87.891 Personal history of nicotine dependence
CPT/HCPCS: 36415; 71045; 76700; 78452; 80048; 80053; 80061; 80162; 80307; 81001; 82040; 82272; 82962; 83036; 83690; 83735; 83880; 84100; 84443; 84484; 85025; 85610; 85730; 87040; 87077; 87086; 87186; 93005; 93017; 93306; 99285; G0378; J0696; J1644; J1650; J2185; J2785; A9502; C9898; J1815; J1940